=== PATIENT | female | born 1980 | race Caucasian/White ===

== ENCOUNTER 2016-08-04 11:21 | Emergency (ER) | payer OTHER ==
[~2016-08-04] VITALS: Ht 162.6 cm; Wt 54.3 kg
[~2016-08-04 11:21] MED LIST: PRENTAB26 PO
[2016-08-04 11:27] VITALS: TEMP 36.7; Ht 162.6 cm; Wt 54.3 kg
[2016-08-04 11:34] VITALS: O2SAT 100
[2016-08-04] MEDS ORDERED: SODIUM CHLORIDE 0.9% 1000ML 1,000 ML IV ONE (11:45)
[2016-08-04 12:00] LABS: BASO % 0.9 %; BASO ABS # 0.08 K/uL (0-0.2); COMPLETE YES; EOS % 5.9 %; HEMATOCRIT 42.2 % (37-47); IG% 0.2 %; LYMPH % 32.5 %; LYMPH ABS # 3.03 K/uL (1.2-3.4); MEAN CELL VOLUME 91.9 fL (80-100); MEAN CORPUSCULAR HEMOGLOBIN 31.2 pg (25-34); MEAN CORPUSCULAR HGB CONC 33.9 g/dl (32-36); MEAN PLATELET VOLUME 9.7 fL (7.4-10.4); MONO % 8.6 %; NEUT % 51.9 %; PLATELET COUNT 322 K/uL (130-400); RED BLOOD COUNT 4.59 M/uL (4.2-5.4); WHITE BLOOD COUNT 9.31 K/uL (4.8-10.8)
[2016-08-04 12:08] LABS: PARTIAL THROMBOPLASTIN RATIO 1.4; PROTHROMBIN TIME (PATIENT) 10.7 SECONDS (9.0-12.0)
[2016-08-04 12:17] LABS: URINE APPEARANCE CLEAR (CLEAR); URINE BILIRUBIN NEG (NEG); URINE COLOR YELLOW; URINE NITRITE NEG (NEG); URINE SPECIFIC GRAVITY 1.009 (1.000-1.030); UROBILINOGEN NEG (NEG); ZZUR CULT IF INDIC CLEAN CATCH NO
[2016-08-04 12:22] LABS: BUN/CREATININE RATIO 12.6 (10-20); CREATININE 0.85 mg/dl (0.60-1.20); POTASSIUM 3.6 mmol/L (3.5-5.1)
[2016-08-04 12:26] LABS: MANUAL MICROSCOPIC REQUIRED? NO; REVIEW REQ? NO
[2016-08-04 12:35] LABS: ALB/GLOB RATIO 1.2 (0.9-2); THYROID STIMULATING HORMONE 2.26 uIu/ml (0.300-4.500)
--- NOTE | 2016-08-04 12:36 | DIAGNOSTIC IMAGING REPORT ---
CHEST 2 VIEWS ROUTINE CLINICAL HISTORY: Left side CP pain COMPARISON STUDY: No previous studies for comparison. FINDINGS: The bones soft tissues and hemidiaphragms are normal. The cardiomediastinal silhouette is normal. The lungs are clear. The pulmonary vasculature is normal. IMPRESSION: Negative chest. Note is made of a thoracic scoliosis Electronically signed by: Claudio Gonzalez M.D. 08/04/2016 12:35 PM Dictated Date/Time: 08/04/2016 12:34 PM
[2016-08-04 12:41] LABS: CALCIUM 9.2 mg/dl (8.5-10.1)
[2016-08-04 13:30] VITALS: BP 107/60; PULSE 88; O2SAT 100
--- NOTE | 2016-08-04 14:54 | EMERGENCY ROOM VISIT NOTE ---
History First contact with patient: 11:29 Chief Complaint: CHEST PAIN Stated Complaint: CHEST PAIN Nursing Triage Summary: chest pain while driving to work today. pain went into neck and back. denies any sob. denies cardiac history History of Present Illness The patient is a 35 year old female who presents to the Emergency Room with complaints of left-sided chest pain radiating into her left side neck that began while driving to work this morning. The patient does not have shortness of breath or dyspnea on exertion. She does not report recent illness such as URI, cough, or fever. No recent travel history. She does not take control and reports a history of von Willebrand. The patient does not have a cardiac history and has not taken anything [id number] for her symptoms. Her discomfort does worsen with some range of motion and movement of her neck. She states the pain is dull and intermittent, currently rated a 4/10. She does not have complaints of extremity pain or numbness, no abdominal or pelvic discomfort. She has not had similar symptoms in the past. Review of Systems More than 10 systems were reviewed and otherwise negative with the exception of history of present illness. Past Medical/Surgical History Von Willebrand disease Family History No pertinent family history Social History Smoking Status: Never Smoker Housing Status: lives with family Occupation Status: employed Current/Historical Medications Scheduled Multivit/Min/Iron/Fol Ac/Pren ( Vitamin), 1 TAB PO DAILY Allergies Coded Allergies: Penicillins (Unverified Allergy, Unknown, Urticaria, 08/04/16) Physical Exam Vital Signs Date Time Temp Pulse Resp B/P Pulse Ox O2 Delivery O2 Flow Rate FiO2 08/04/16 13:30 88 18 107/60 100 08/04/16 12:27 82 08/04/16 11:34 100 Room Air 08/04/16 11:27 36.7 82 16 115/74 100 Physical Exam VITALS: Vitals are noted on the nurse's note and reviewed by myself. Vital signs stable. GENERAL: Well-developed, well-nourished, white female, who is in no acute distress and resting comfortably. Patient is cooperative with the examination. HEAD: Normocephalic atraumatic. NECK: Supple without nuchal rigidity. No lymphadenopathy. No thyromegaly. Cervical spine is nontender. Axial rotation to the right does exacerbate patient tenderness to the left paracervical musculature HEART: Regular rate and rhythm without murmurs gallops or rubs. LUNGS: Clear to auscultation bilaterally without wheezes, rales or rhonchi. No retractions or accessory muscle use. ABDOMEN: Positive normal bowel sounds x 4. Soft, nontender, without masses or organomegaly. No guarding or rebound tenderness. MUSCULOSKELETAL: No muscle atrophy, erythema, or edema noted. Full range of motion without joint tenderness in all extremities. No tenderness to palpation. Normal gait. Strength 5/5 throughout. NEURO: Patient was alert and oriented to person place and time. CN II through XII grossly intact. Medical Decision & Procedures ER Provider Diagnostic Interpretation: CHEST 2 VIEWS ROUTINE CLINICAL HISTORY: Left side CP pain COMPARISON STUDY: No previous studies for comparison. FINDINGS: The bones soft tissues and hemidiaphragms are normal. The cardiomediastinal silhouette is normal. The lungs are clear. The pulmonary vasculature is normal. IMPRESSION: Negative chest. Note is made of a thoracic scoliosis Laboratory Results 08/04/16 11:35 Red Blood Count 4.59, Mean Corpuscular Volume 91.9, Mean Corpuscular Hemoglobin 31.2, Mean Corpuscular Hemoglobin Concent 33.9, Mean Platelet Volume 9.7, Neutrophils (%) (Auto) 51.9, Lymphocytes (%) (Auto) 32.5, Monocytes (%) (Auto) 8.6, Eosinophils (%) (Auto) 5.9, Basophils (%) (Auto) 0.9, Neutrophils # (Auto) 4.83, Lymphocytes # (Auto) 3.03, Monocytes # (Auto) 0.80, Eosinophils # (Auto) 0.55, Basophils # (Auto) 0.08 08/04/16 11:35 Test 08/04/16 11:35 08/04/16 11:55 08/04/16 12:00 White Blood Count 9.31 K/uL (4.8-10.8) Red Blood Count 4.59 M/uL (4.2-5.4) Hemoglobin 14.3 g/dL (12.0-16.0) Hematocrit 42.2 % (37-47) Mean Corpuscular Volume 91.9 fL (80-100) Mean Corpuscular Hemoglobin 31.2 pg (25-34) Mean Corpuscular Hemoglobin Concent 33.9 g/dl (32-36) Platelet Count 322 K/uL (130-400) Mean Platelet Volume 9.7 fL (7.4-10.4) Neutrophils (%) (Auto) 51.9 % Lymphocytes (%) (Auto) 32.5 % Monocytes (%) (Auto) 8.6 % Eosinophils (%) (Auto) 5.9 % Basophils (%) (Auto) 0.9 % Neutrophils # (Auto) 4.83 K/uL (1.4-6.5) Lymphocytes # (Auto) 3.03 K/uL (1.2-3.4) Monocytes # (Auto) 0.80 K/uL (0.11-0.59) Eosinophils # (Auto) 0.55 K/uL (0-0.5) Basophils # (Auto) 0.08 K/uL (0-0.2) RDW Standard Deviation 45.1 fL (36.4-46.3) RDW Coefficient of Variation 13.5 % (11.5-14.5) Immature Granulocyte % (Auto) 0.2 % Immature Granulocyte # (Auto) 0.02 K/uL (0.00-0.02) Prothrombin Time 10.7 SECONDS (9.0-12.0) Prothromb Time International Ratio 1.0 (0.9-1.1) Activated Partial Thromboplast Time 36.9 SECONDS (21.0-31.0) Partial Thromboplastin Ratio 1.4 Anion Gap 10.0 mmol/L (3-11) Est Creatinine Clear Calc Drug Dose 79.9 ml/min Estimated GFR () 103.6 Estimated GFR (Non- 89.4 BUN/Creatinine Ratio 12.6 (10-20) Calcium Level 9.2 mg/dl (8.5-10.1) Total Bilirubin 1.0 mg/dl (0.2-1) Aspartate Amino Transf (AST/SGOT) 15 U/L (15-37) Alanine Aminotransferase (ALT/SGPT) 15 U/L (12-78) Alkaline Phosphatase 42 U/L (45-117) Total Protein 7.3 gm/dl (6.4-8.2) Albumin 4.0 gm/dl (3.4-5.0) Globulin 3.3 gm/dl (2.5-4.0) Albumin/Globulin Ratio 1.2 (0.9-2) Lipase 162 U/L (73-393) Thyroid Stimulating Hormone (TSH) 2.260 uIu/ml (0.300-4.500) Bedside D-Dimer 134 ng/mlFEU (0-450) Bedside Troponin I 0.000 ng/ml (0-0.045) Urine Color YELLOW Urine Appearance CLEAR (CLEAR) Urine pH 7.0 (4.5-7.5) Urine Specific [place] 1.009 (1.000-1.030) Urine Protein NEG (NEG) Urine Glucose (UA) NEG (NEG) Urine Ketones NEG (NEG) Urine Occult Blood NEG (NEG) Urine Nitrite NEG (NEG) Urine Bilirubin NEG (NEG) Urine Urobilinogen NEG (NEG) Urine Leukocyte Esterase TRACE (NEG) Urine WBC (Auto) 1-5 /hpf (0-5) Urine RBC (Auto) 0-4 /hpf (0-4) Urine Hyaline Casts (Auto) 0 /lpf (0-5) Urine Epithelial Cells (Auto) 10-20 /lpf (0-5) Urine Bacteria (Auto) NEG (NEG) Urine Test NEG (NEG) Medications Administered Medications (Trade) Dose Ordered Sig/Marcus Route Start Time Stop Time Status Last Admin Dose Admin Sodium Chloride (Nss 1000ml) 1,000 ml @ 999 mls/hr Q1H1M ONCE IV 08/04/16 11:45 08/04/16 12:45 DC 08/04/16 12:11 999 MLS/HR ED Course Physical exam and history were performed. Nursing notes and EMR were reviewed. Patient appears to have left-sided chest pain symptoms that began while driving to work. On examination the patient does not appear toxic. EKG was performed and was normal sinus rhythm without acute ST elevation. The patient was placed on the monitor. IV access was established and labs were obtained. Chest x-ray was performed. The patient was reevaluated multiple times throughout the course of her stay. Her blood work is as above and was reviewed. She does not have a significantly elevated white blood cell count or gross anemia, bandemia, or significant electrolyte imbalance. Lipase and transaminases are nondiagnostic. Chest x- ray is without acute findings. 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 Troponin and d-dimer 1 are both negative. I discussed the case with my attending physician, Dr. Mcpherson, and we feel the patient is stable for discharge home. The patient does not appear to have an acute cardiopulmonary process, and has been stable throughout her ER stay. There does appear to be some range of motion exacerbates her symptoms, and I do suspect a muscle spasm or strain causing much of her discomfort. I do recommend the patient follow with her PCP in the next few days for recheck. She was otherwise invited back to the ER with any new, worsening, or concerning symptoms. She voiced understanding and rated her discomfort a 0/10 at the time of her departure. The chart was completed utilizing [employer] (formerly [employer]) Speech Voice Recognition Software. Grammatical errors, random word insertions, pronoun errors, and incomplete sentences are an occasional consequence of this system due to software limitations, ambient noise, and hardware issues. Any formal questions or concerns about the content, text, or information contained within the body of this dictation should be directly addressed to the provider for clarification. . Medical Decision Differential diagnosis includes, but is not limited to: Myocardial infarction, dysrhythmia, pericarditis, pneumothorax, aortic aneurysm/dissection, DVT/PE, anxiety, GERD, PUD, electrolyte imbalance, thyroid disorder, pneumonia, bronchitis, pancreatitis, and others Impression Primary Impression: Non-cardiac chest pain Departure Information Referrals Kori Mckenna DO (PCP) Patient Instructions [facility]
== END 2016-08-04 13:32 | disposition home or self-care (01) ==
LOC: C.EDB 11:23
DX: R07.89 Other chest pain (principal); M54.2 Cervicalgia; D68.0 Von Willebrand disease

== ENCOUNTER → 2016-08-07 | Outpatient (CLI) | payer OTHER ==
[~2016-08-07] MED LIST changes: +IBUP-103 PO; +NAPR-1169 PO; +OPTIRAY 320 IV PRN
--- NOTE | 2016-08-07 15:52 | DIAGNOSTIC IMAGING REPORT ---
CHEST CTA for PULMONARY ARTERIES CT DOSE: 214.32 mGycm HISTORY: Chest pain. Dyspnea. CHEST PAIN , SOB EVAL FOR PE TECHNIQUE: Multiaxial CT images of the chest were performed following the intravenous administration of contrast to evaluate the pulmonary arteries. Maximal intensity projection images were also obtained. COMPARISON STUDY: None. FINDINGS: There is a normal caliber thoracic aorta with no evidence for dissection. There is no evidence for pulmonary embolus. No pleural effusions. No pneumothorax. The liver and spleen are unremarkable. No mediastinal or hilar lymphadenopathy. The central airways are patent. The lungs are clear. Slight peribronchial thickening throughout. IMPRESSION: No evidence for pulmonary embolus. Lungs are clear. Slight peribronchial thickening. Electronically signed by: Claudio Gonzalez M.D. 08/07/2016 3:51 PM Dictated Date/Time: 08/07/2016 3:48 PM
[2016-08-07 16:42] LABS: BASO % 0.5 %; BASO ABS # 0.04 K/uL (0-0.2); COMPLETE YES; HEMATOCRIT 40.2 % (37-47); IG% 0.1 %; LYMPH % 31.2 %; LYMPH ABS # 2.55 K/uL (1.2-3.4); MEAN CELL VOLUME 92.4 fL (80-100); MEAN CORPUSCULAR HEMOGLOBIN 30.8 pg (25-34); MEAN CORPUSCULAR HGB CONC 33.3 g/dl (32-36); MONO % 7.6 %; NEUT % 55.6 %; PLATELET COUNT 327 K/uL (130-400); RED BLOOD COUNT 4.35 M/uL (4.2-5.4); WHITE BLOOD COUNT 8.18 K/uL (4.8-10.8)
[2016-08-07 17:24] LABS: ALT/SGPT 12 U/L (12-78); AST/SGOT 10 U/L (15-37); BLOOD UREA NITROGEN 13 mg/dl (7-18); BUN/CREATININE RATIO 14.4 (10-20); CALCIUM 8.3 mg/dl (8.5-10.1); CARBON DIOXIDE 27 mmol/L (21-32); CHLORIDE 107 mmol/L (98-107); CREATININE 0.89 mg/dl (0.60-1.20); GLUCOSE 96 mg/dl (70-99); POTASSIUM 3.7 mmol/L (3.5-5.1); SODIUM 142 mmol/L (136-145)
[2016-08-07 17:26] LABS: ALB/GLOB RATIO 1.1 (0.9-2); ALKALINE PHOSPHATASE 41 U/L (45-117)
[2016-08-07 18:38] LABS: LYME DISEASE AB IGG NEG (NEG); LYME DISEASE AB IGM NEG (NEG)
== END | disposition home or self-care (01) ==
LOC: C.CTS 15:22
PROVIDERS: ATTEND Family Medicine
DX: R07.9 Chest pain, unspecified (principal); R06.02 Shortness of breath

== ENCOUNTER 2016-11-17 19:10 | Emergency (ER) | payer OTHER ==
[~2016-11-17] VITALS: Ht 160 cm; Wt 58.5 kg
[~2016-11-17 19:10] MED LIST changes: -IBUP-103 PO; -NAPR-1169 PO; -OPTIRAY 320 IV PRN
[2016-11-17 19:13] VITALS: TEMP 36.7; Ht 160 cm; Wt 58.5 kg
--- NOTE | 2016-11-17 19:52 | DIAGNOSTIC IMAGING REPORT ---
RIGHT SHOULDER MIN 2 VIEWS ROUTINE CLINICAL HISTORY: Right shoulder pain. COMPARISON: None FINDINGS: Alignment of the right shoulder is anatomic. There is no fracture or suspicious lesion. Joint spaces are preserved. There may be minimal osteoarthritis of the right acromioclavicular joint. IMPRESSION: 1. No acute fracture. 2. Suspected minimal osteoarthritis of the right acromioclavicular joint. Electronically signed by: Connor Ball M.D. 11/17/2016 7:51 PM Dictated Date/Time: 11/17/2016 7:50 PM
[2016-11-17] MEDS ORDERED: KETOROLAC TROMETHAMINE 60 MG/2 ML VIAL IM STA (19:54)
--- NOTE | 2016-11-17 20:02 | EMERGENCY ROOM VISIT NOTE ---
ED Visit Note First contact with patient: 19:19 CHIEF COMPLAINT: Right shoulder pain HISTORY OF PRESENT ILLNESS: This 35-year-old female patient presents to the emergency department, ambulatory, complaining of pain in the right shoulder for years, worse over the past 2 days. The patient states she played softball growing up, and has a history of right shoulder soreness and pain. The patient has never had any official injury to the arm, however she has frequently had pain flareup. She states over the past 2 days, she is having worsening pain right in the shoulder joint, which is radiating down towards the elbow and causing some weakness in her right hand. The patient has been taking 400 mg Advil every 4 hours, and states it does not make much difference. The patient states the pain has been worsening over the past 2 days. She describes an achy pain, which shoots towards the elbow, and throbbing pain in the hand. The patient states she is able to move the shoulder, however movement of the shoulder worsens the discomfort. The patient is most comfortable with the arm in a flexed position. There is very mild limitation of motion of the arm because of the pain. The pain is moderate, constant and increases with motion of the hand and arm. The patient rates the pain 8/10. No numbness or tingling. No neck or back pain. No chest pain or shortness of breath. No abdominal pain or nausea/vomiting. No cough. REVIEW OF SYSTEMS: A 6 system review of systems was performed with positives and pertinent negatives in the HPI. ALLERGIES: Penicillins MEDICATIONS: None PMH: None SOCIAL HISTORY:The patient lives locally with family. She denies drug, tobacco use. The patient admits to occasional alcohol use approximally once weekly. PHYSICAL EXAM: Vital Signs: Reviewed nurse's notes, vital signs stable. GENERAL : This is a 35-year-old, otherwise healthy white female, in no acute distress, but appears to be in pain, well-developed, well-nourished. MUSCULOSKELETAL: There is no deformity in the contour of the right shoulder and there are no lety deformities noted. There is no sulcus sign. There is tenderness over the shoulder joint, worse on the anterior aspect. The patient's range of motion is full. Supraspinatus strength 5/5. There is no clavicle tenderness. No tenderness of the humerus, elbow, wrist, or hand. 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 Radial pulse 2+. NECK: No tenderness to palpation over the cervical spine. HEART: Regular rate and rhythm without murmurs gallops or rubs. LUNGS: Clear to auscultation bilaterally without wheezes, rales or rhonchi. No accessory muscle use. No retractions. NEURO: The patient is alert and oriented to person, place, and time. Normal sensation to light and sharp touch. Capillary refill less than 2 seconds. RADIOLOGY: X-Ray Right Shoulder: FINDINGS: Alignment of the right shoulder is anatomic. There is no fracture or suspicious lesion. Joint spaces are preserved. There may be minimal osteoarthritis of the right acromioclavicular joint. IMPRESSION: 1. No acute fracture. 2. Suspected minimal osteoarthritis of the right acromioclavicular joint. EMERGENCY DEPARTMENT COURSE: I examined the patient. An X-ray of the right shoulder was reviewed by myself and radiologist and shows osteoarthritis, but no acute fracture or dislocation. The patient was given 60mg Toradol IM and did note slight improvement in her symptoms. The patient was given a shoulder sling for comfort. Discharge instructions reviewed at bedside and the patient was discharged home in good condition. DIFFERENTIAL DIAGNOSIS: Arthritis, rotator cuff tear, sprain, strain, contusion , malignancy, and others. DIAGNOSIS: Osteoarthritis of the right shoulder DISCHARGE INSTRUCTIONS & TREATMENT: Take Naproxen 500mg twice daily x2 weeks. Take with food. Avoid using more than 2400mg in a 24 hour period. Prolonged inappropriate use can lead to stomach upset or ulcers. (AND/OR) Acetaminophen(Tylenol) may be used for fever or pain. Use 1000mg every six hours as needed. Avoid using more than 3000mg in a 24 hour period. Ice compresses for 20 minutes at a time four times daily for 2-3 days. Use the sling as instructed for comfort. Remove your arm from the sling 4-6 times a day and move all the joints around to keep them loose. Rest and elevate your injury. Return to the ER immediately for any numbness, tingling, severe pain, extreme swelling in the extremity or as needed. Follow-up with [facility] already scheduled appointment. Follow-up with your primary care physician in 2 to 3 days for a recheck of your current condition. Current/Historical Medications Scheduled Naproxen (Naprosyn), 500 MG PO BID Scheduled PRN Ibuprofen Tab (Advil), 400 MG PO Q4 PRN for Pain Allergies Coded Allergies: Penicillins (Unverified Allergy, Unknown, Urticaria, 08/04/16) Vital Signs Date Time Temp Pulse Resp B/P (MAP) Pulse Ox O2 Delivery O2 Flow Rate FiO2 11/17/16 20:27 77 18 115/75 98 Room Air 11/17/16 19:13 36.7 85 16 112/70 99 Room Air Medications Administered Medications (Trade) Dose Ordered Sig/Marcus Route Start Time Stop Time Status Last Admin Dose Admin Ketorolac Tromethamine (Toradol Inj) 60 mg NOW STAT IM 11/17/16 19:54 11/17/16 19:55 DC 11/17/16 20:17 60 MG Departure Information Impression Primary Impression: Osteoarthritis of right shoulder Dispostion Home / Self-Care Condition GOOD Prescriptions Naproxen (Naprosyn) 500 Mg Tab 500 MG PO BID, #60 TAB Prov: Kerline Baugh, YESENIA 11/17/16 Referrals Kori Mckenna DO (PCP) Claudio Lyman M.D. Patient Instructions Arthritis, [facility] Additional Instructions ORTHOPEDIC INSTRUCTIONS: Take Naproxen 500mg twice daily x2 weeks. Take with food. Avoid using more than 2400mg in a 24 hour period. Prolonged inappropriate use can lead to stomach upset or ulcers. (AND/OR) Acetaminophen(Tylenol) may be used for fever or pain. Use 1000mg every six hours as needed. Avoid using more than 3000mg in a 24 hour period. Ice compresses for 20 minutes at a time four times daily for 2-3 days. Use the sling as instructed for comfort. Remove your arm from the sling 4-6 times a day and move all the joints around to keep them loose. Rest and elevate your injury. Return to the ER immediately for any numbness, tingling, severe pain, extreme swelling in the extremity or as needed. Follow-up with [facility] already scheduled appointment. Follow-up with your primary care physician in 2 to 3 days for a recheck of your current condition. Problem Qualifiers Primary Impression: Osteoarthritis of right shoulder Osteoarthritis type: unspecified Qualified Codes: M19.011 - Primary osteoarthritis, right shoulder
[2016-11-17] MEDS ORDERED: IBUP-103 PO (20:07)
[2016-11-17] MEDS ORDERED: NAPR-1169 PO (20:15)
[2016-11-17 20:27] VITALS: BP 115/75; PULSE 77; O2SAT 98
== END 2016-11-17 20:29 | disposition home or self-care (01) ==
LOC: C.EDB 19:11 → C.EDD 20:29
DX: M19.011 Primary osteoarthritis, right shoulder (principal)

== ENCOUNTER 2024-02-11 17:31 | Observation (INO) ==
[2024-02-11 18:05] LABS: iSTAT Creatinine 0.9 mg/dl (0.6-1.3); iSTAT Hemoglobin 6.1 g/dl (12.0-16.0); iSTAT Ionized Calcium 1.15 mmol/l (1.12-1.32); iSTAT Potassium 3.7 mmol/L (3.3-5.0)
[2024-02-11 18:18] LABS: Hematocrit (blood only) 17.4 % (37.0-47.0); Hemoglobin 4.7 g/dl (12.0-16.0); Mean Corpuscular Volume 70.2 fL (80.0-100.0); Mean Platelet Volume 9.2 fL (9.4-12.4); Platelet Count 518 K/uL (130-400); RDW Standard Deviation 50.2 fL (36.4-46.3); Red Blood Count 2.48 M/uL (4.20-5.40); White Blood Count 10.08 K/ul (4.8-10.8)
[2024-02-11] MEDS ORDERED: SODIUM CHLORIDE 0.9% 100 ML IV PRN (18:21)
[2024-02-11] MEDS ORDERED: SODIUM CHLORIDE 0.9% 50 ML IV PRN (18:21)
[2024-02-11 18:30] LABS: BUN Creatinine Ratio 16.5 (10-20); Calcium 8.5 mg/dl (8.6-10.3); Creatinine Clr Calc Pharmacy 80.6 ml/min; Potassium 3.7 mmol/L (3.5-5.1)
[2024-02-11 18:42] LABS: Partial Thromboplastin Ratio 1.2; Partial Thromboplastin Time 32 Seconds (21-31); Prothrombin Time 10.5 Seconds (9.0-12.0)
[2024-02-11 18:48] LABS: Basophils # (auto) 0.05 K/uL (0.00-0.20); Basophils % (auto) 0.5 %; Eosinophils # (auto) 0.42 K/uL (0.00-0.50); Eosinophils % (auto) 4.2 %; Immature Granulocytes # (auto) 0.06 K/uL (0.01-0.20); Immature Granulocytes % (auto) 0.6 %; Lymphocytes # (auto) 2.35 K/uL (1.20-3.40); Lymphocytes % (auto) 23.3 %; Monocytes # (auto) 0.72 K/uL (0.11-0.59); Monocytes % (auto) 7.1 %; Neutrophils # (auto) 6.48 K/uL (1.40-6.50); Neutrophils % (auto) 64.3 %; Polychromasia 1+
[2024-02-11] MEDS: DESMOPRESSIN ACETATE 20 MCG in SODIUM CHLORIDE 0.9% 50 ML IV ONE (19:08)
[2024-02-11] MEDS ORDERED: ONDANSETRON INJ 2 MG/ML 2 ML VIAL IV PRN (19:11)
[2024-02-11] MEDS ORDERED: ACETAMINOPHEN 325 MG TAB PO PRN (19:11)
[2024-02-11] MEDS ORDERED: LORazepam 0.5 MG TAB PO PRN (19:11)
[2024-02-11] MEDS ORDERED: ALUMINUM/MAGNESIUM/SIMETH (MAALOX MAX) 30 ML UDC PO PRN (19:11)
[2024-02-11] MEDS ORDERED: MAGNESIUM HYDROXIDE SUSP 30 ML UDC PO PRN (19:11)
--- NOTE | 2024-02-11 19:21 | OB/GYN Consultation ---
Date of Consultation February 11, 2024 Assessment & Plan (1) Deficiency of von Willebrand factor: (2) Abnormal uterine bleeding (AUB): 43 yo female with AUB since 10/2023, not responded to progestin therapy, was planning to get hysterectomy with Dr Erwin, found to have anemia with Hb of 4.7, ( was 7 in 03/2023), chronc anemia, h/o VWD VSS Afebrile, tachycardic No active VB Plan to admit, monitor, PRBCC transfusion, DDAVP per hematology Estrogen therapy for thinned endometrium followed by Progestin after 12 days, All questions were answred. (3) Fibroid, uterine: (4) Anemia: History of Present Illness History of Present Illness Patient is a 43 yo female who has h/o VWD and chronic anemia. She had Heavy period on October when her PCP placed her on Aygestin which sopped her bleeding for few days and then it got worse. She used it for about a month and then stopped due to ongoing VB Her bleeding stopped for a while and started again about 5 weeks ago. It has been heavy and light off and on. It was heavier this week but has been light for the last 2 days. She went to hematology office for IV iron infusion ad her Hb was 4.7 and recommended to come to ER for blood transfusion. She feels tired but not dizzy or light headed. 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 She denies h/o STD's, has been with her only She had 2 babies, had hemorrhage after 1st one and then diagnosed with VWD, was given DDAVP during her last baby 9 years ago. She has not seen Huc since then. She saw Dr Erwin 2 weeks ago and planned to have hysterectomy. She was going to see her basic sciences professor to arrange DDAVP before surgery. Dr Holley here in ER talked her basic sciences professor now and orderd her IV Desmopressin. Last US was on 12/2023: FINDINGS: Uterus: The retroverted uterus is normal in size and heterogeneous and echotexture, measuring 9.8 x 5.6 x 6.4 cm. A heterogeneous mass lesion in the anterior fundal region measures up to 4. Centimeters and likely represents a fibroid. This closely approximates/distorts the fundal endometrium. Endometrium: The endometrium is distorted and difficult to measure Ovaries: The ovaries are normal in size and morphology. The right ovary measures 2.7 x 1.9 x 1.4 cm and the left ovary measures 4.8 x 3.9 x 4.4 cm. A 4.4 cm septated cyst is seen on the left. Additional follicles are noted on the right. Normal Doppler waveforms are shown within both ovaries. Pelvis: There is trace free fluid in the cul-de-sac in the left adnexa. No concerning adnexal lesion is seen. IMPRESSION: 1. Heterogeneous retroverted uterus. 2. An intramural mass in the anterior fundal region is pathologically indeterminant, but typical for a fibroid. This closely approximates and distorts the endometrium at this level. 3. There is a 4.4 cm septated left ovarian cyst. No sonographic evidence of ovarian torsion is seen in the time examination. 4. Trace free fluid is noted in the left adnexa. Allergies Allergy/AdvReac Type Severity Reaction Status Date / Time Penicillins Allergy Unknown Urticaria Unverified 08/04/16 12:17 Home Medications Medication Instructions Recorded Confirmed Type Ibuprofen Tab (ADVIL) 400 mg PO Q4 PRN Pain #0 tabs 11/17/16 History ondansetron 4 mg disintegrating 4 mg PO Q8H PRN nausea and 04/19/23 Rx tablet vomiting #10 tabs oxycodone 5 mg tablet 5 mg PO Q6H PRN pain, severe #12 04/19/23 Rx tabs Patient History Social History Smoking Status: Never smoker Preferred Language: Mongolian Feels Safe at Home: Yes Physical Exam Constitutional: WD/WN, vitals as above well developed, well nourished and comfortable Gastrointestinal (Abdomen): normal bowel sounds, soft, nontender, no hepatosplenomegaly Genitourinary: deferred already done by ER Dr and was ligt bleeding. Results & Data Vital Signs (Past 12 Hours) Vital Signs Temp Pulse Pulse Resp BP BP Pulse Ox 02/11/24 19:06 129 H 18 124/74 100 02/11/24 17:35 37.3 C 108 H 20 132/70 92 O2 Del Method 02/11/24 19:06 Room Air 02/11/24 17:35 Room Air Laboratory Results 02/11/24 02/11/24 02/11/24 Range/Units 18:35 18:19 17:52 WBC (4.8-10.8) K/ul RBC (4.20-5.40) M/uL Hgb (12.0-16.0) g/dl POC Hgb 6.1 L* (12.0-16.0) g/dl Hct (37.0-47.0) % POC Hct 18 L* (37-47) % MCV (80.0-100.0) fL MCH (25.0-34.0) pg MCHC (32.0-36.0) g/dL RDW Std Deviation (36.4-46.3) fL RDW Coeff of Claudia (11.5-14.5) % Plt Count (130-400) K/uL MPV (9.4-12.4) fL Immature Gran % (Auto) % Neut % (Auto) % Lymph % (Auto) % [place] % (Auto) % Eos % (Auto) % Baso % (Auto) % Neut # (Auto) (1.40-6.50) K/uL Lymph # (Auto) (1.20-3.40) K/uL [place] # (Auto) (0.11-0.59) K/uL Eos # (Auto) (0.00-0.50) K/uL Baso # (Auto) (0.00-0.20) K/uL Immature Gran # (Auto) (0.01-0.20) K/uL Polychromasia PT (9.0-12.0) Seconds INR (0.9-1.1) APTT (21-31) Seconds PTT Ratio POC Sodium 136 (135-144) mmol/L Sodium (136-145) mmol/L POC Potassium 3.7 (3.3-5.0) mmol/L Potassium (3.5-5.1) mmol/L POC Chloride 101 (101-112) mmol/L Chloride (98-107) mmol/L Carbon Dioxide (21-32) mmol/L POC Total CO2 22 L (24-31) mmol/L Anion Gap (3-11) POC Anion Gap 18.0 (16-25) mmol/L POC BUN 13 (7-18) mg/dl BUN (6-23) mg/dl Creatinine (0.6-1.2) mg/dl POC Creatinine 0.9 (0.6-1.3) mg/dl Est Cr Clr Drug Dosing ml/min eGFR BUN/Creatinine Ratio (10-20) Glucose (70-99(Fasting)) mg/dl POC Glucose (other) 133 H (70-99) mg/dl Calcium (8.6-10.3) mg/dl POC Ioniz Calcium Bonnie 1.15 (1.12-1.32) mmol/l Blood Type O Positive Blood Type Recheck O Positive Antibody Screen NEGATIVE Crossmatch See Detail 02/11/24 Range/Units 17:50 WBC 10.08 (4.8-10.8) K/ul RBC 2.48 L (4.20-5.40) M/uL Hgb 4.7 L* (12.0-16.0) g/dl POC Hgb (12.0-16.0) g/dl Hct 17.4 L* (37.0-47.0) % POC Hct (37-47) % MCV 70.2 L (80.0-100.0) fL MCH 19.0 L (25.0-34.0) pg MCHC 27.0 L (32.0-36.0) g/dL RDW Std Deviation 50.2 H (36.4-46.3) fL RDW Coeff of Claudia 20.0 H (11.5-14.5) % Plt Count 518 H (130-400) K/uL MPV 9.2 L (9.4-12.4) fL Immature Gran % (Auto) 0.6 % Neut % (Auto) 64.3 % Lymph % (Auto) 23.3 % [place]eves % (Auto) 7.1 % Eos % (Auto) 4.2 % Baso % (Auto) 0.5 % Neut # (Auto) 6.48 (1.40-6.50) K/uL Lymph # (Auto) 2.35 (1.20-3.40) K/uL [place]eves # (Auto) 0.72 H (0.11-0.59) K/uL Eos # (Auto) 0.42 (0.00-0.50) K/uL Baso # (Auto) 0.05 (0.00-0.20) K/uL Immature Gran # (Auto) 0.06 (0.01-0.20) K/uL Polychromasia 1+ PT 10.5 (9.0-12.0) Seconds INR 1.0 (0.9-1.1) APTT 32 H (21-31) Seconds PTT Ratio 1.2 POC Sodium (135-144) mmol/L Sodium 135 L (136-145) mmol/L POC Potassium (3.3-5.0) mmol/L Potassium 3.7 (3.5-5.1) mmol/L POC Chloride (101-112) mmol/L Chloride 104 (98-107) mmol/L Carbon Dioxide 23 (21-32) mmol/L POC Total CO2 (24-31) mmol/L Anion Gap 8 (3-11) POC Anion Gap (16-25) mmol/L POC BUN (7-18) mg/dl BUN 14 (6-23) mg/dl Creatinine 0.85 (0.6-1.2) mg/dl POC Creatinine (0.6-1.3) mg/dl Est Cr Clr Drug Dosing 80.6 ml/min eGFR 87.67 BUN/Creatinine Ratio 16.5 (10-20) Glucose 134 H (70-99(Fasting)) mg/dl POC Glucose (other) (70-99) mg/dl Calcium 8.5 L (8.6-10.3) mg/dl POC Ioniz Calcium Bonnie (1.12-1.32) mmol/l Blood Type Blood Type Recheck Antibody Screen Crossmatch (3) Fibroid, uterine Uterine leiomyoma location: intramural Qualified Code(s): D25.1 - Intramural leiomyoma of uterus (4) Anemia Anemia type: iron deficiency Iron deficiency anemia type: chronic blood loss Qualified Code(s): D50.0 - Iron deficiency anemia secondary to blood loss (chronic)
--- NOTE | 2024-02-11 19:45 | Emergency Department Note ---
History of Present Illness General Chief complaint: Referred by Doctor Stated complaint: BLOOD TRANSFUSION Time Seen by Provider: 02/11/24 17:38 History of Present Illness Provider complaint: Low blood counts vaginal bleeding 43-year-old female presents emergency department for low blood counts and vaginal bleeding. Patient reports that she had outpatient blood work done today and showed her hemoglobin was low. Patient reports she has a history of von Willebrand disease and iron deficiency anemia. Patient states she is on iron infusions. Patient reports that she has been having increased vaginal bleeding for the last month. She states she has tried oral oral contraceptives to help her vaginal bleeding but that made her symptoms worse that she had more bleeding. Patient states she had an outpatient ultrasound done by Dr. Erwin which did show a fibroid and states that they are planning to hysterectomy on her. She does report some mild difficulty breathing with exertion. No chest pain. No melena or hematochezia. Home Medications Medication Instructions Recorded Confirmed Type Ibuprofen Tab (ADVIL) 400 mg PO Q4 PRN Pain #0 tabs 11/17/16 History ondansetron 4 mg disintegrating 4 mg PO Q8H PRN nausea and 04/19/23 Rx tablet vomiting #10 tabs oxycodone 5 mg tablet 5 mg PO Q6H PRN pain, severe #12 04/19/23 Rx tabs Allergies Allergy/AdvReac Type Severity Reaction Status Date / Time Penicillins Allergy Unknown Urticaria Unverified 08/04/16 12:17 Past Med/Surg History Problem List (Updated 02/11/24 @ 19:53 by Gonzales Holley MD) Von Willebrand's disease (Acute) Anemia (Acute) Vaginal bleeding (Acute) Flank pain Clotting disorder (Acute) Non-cardiac chest pain (Acute) Ruptured membranes, prolonged (Acute) Medical History No pertinent family history Anemia Fibroid, uterine Abnormal uterine bleeding (AUB) Deficiency of von Willebrand factor Surgical History No pertinent past surgical history Social History Smoking Status: Never smoker Preferred Language: Occitan Feels Safe at Home: Yes Physical Exam Vital Signs Vital Signs - 24 hr 02/11/24 17:35 02/11/24 18:23 02/11/24 19:06 Temperature 37.3 C Temperature Source Skin Pulse Rate 108 H 113 H Pulse Rate [Finger] 129 H Pulse Rhythm Pulse Rhythm [Finger] Regular Pulse Strength Pulse Strength [Finger] Normal Respiratory Rate 20 18 Respiratory Effort / Characteristics Non-Labored Spontaneous Non-Labored Spontaneous Respiratory Depth Normal Normal Respiratory Pattern Regular Blood Pressure 132/70 Blood Pressure [Right Arm] 124/74 Blood Pressure Mean 90 Blood Pressure Mean [Right Arm] 90 Blood Pressure Position [Right Arm] Lying Pulse Oximetry 92 100 Oxygen Delivery Method Room Air Room Air Sepsis Recent Fever Within 48 Hours No Sepsis New/Unexplained Change in Mental Status N/A Sepsis Action Taken by Nursing No Action Required 02/11/24 19:48 Temperature 36.9 C Temperature Source Oral Pulse Rate 115 H Pulse Rate [Finger] Pulse Rhythm Regular Pulse Rhythm [Finger] Pulse Strength Normal Pulse Strength [Finger] Respiratory Rate 18 Respiratory Effort / Characteristics Respiratory Depth Respiratory Pattern Blood Pressure 118/68 Blood Pressure [Right Arm] Blood Pressure Mean 84 Blood Pressure Mean [Right Arm] Blood Pressure Position [Right Arm] Pulse Oximetry 100 Oxygen Delivery Method Sepsis Recent Fever Within 48 Hours Sepsis New/Unexplained Change in Mental Status Sepsis Action Taken by Nursing Physical Exam GENERAL: She is oriented to person, place, and time. She appears well-developed and well-nourished. She does not appear distressed. HENT: Exam performed. -Head: Normocephalic and atraumatic. -Right Ear: External ear normal. No mastoid erythema -Left Ear: External ear normal. No mastoid erythema -Mouth/Throat: The oropharynx is clear and moist. No trismus in the jaw. No dental abscesses or uvula swelling. No oropharyngeal exudate or tonsillar abscesses. EYES: Conjunctivae and EOM are normal. Pupils are equal, round, and reactive to light. Right eye exhibits no discharge. Left eye exhibits no discharge. No scleral icterus. NECK: Normal range of motion. Neck supple. No JVD present. No rigidity. No tracheal deviation and normal range of motion present. CV: Tachycardic rate, regular rhythm, normal heart sounds and intact distal pulses. There is no peripheral edema. Palpable radial pulses bue. PULM/CHEST: Effort normal and breath sounds normal. No respiratory distress. No stridor. She has no wheezes. She has no rales. ABD: The abdomen is soft. There is no tenderness. There is no rebound, no guarding. : Mild vaginal bleeding in the vaginal vault. Cervical os is closed. No cervical motion tenderness or adnexal tenderness. MUSC/SKEL: Normal range of motion. There is no peripheral edema, tenderness or deformity. LYMPH: No cervical adenopathy. NEURO: She is alert and oriented to person, place, and time. She has normal strength. No cranial nerve deficit or sensory deficit. Coordination and gait normal. GCS eye subscore is 4. GCS verbal subscore is 5. GCS motor subscore is 6. Cerebellar tests wnl. SKIN: Skin is warm and dry. She is not diaphoretic. PSYCH: She has a normal mood and affect. Behavior is normal. Judgment and thought content normal. Course Course 1737: The patient was evaluated in room C2. A complete history and physical exam was performed Cardiac monitoring: An order was placed for continuous cardiac monitoring. The monitor shows a rate of 110 with sinus rhythm interpreted by me 1820: Vital signs stable. Hemoglobin 4.7. Will transfuse 2 units packed red blood cells. 1830: Spoke with Dr. Jean on-call COMMISSARY PRODUCTION SUPERVISOR for patient's COMMISSARY PRODUCTION SUPERVISOR Dr. Erwin who states he obtained pelvic ultrasound and she will plan on admitting the patient. 185: Spoke with Dr. Shen on-call for patient's wet process operator Dr. Catalan. We discussed if desmopressin would be appropriate for this patient. She went into their records and decided it would be. She recommends 0.3 mcg/kg over 30 minutes. 0: Dr. Jean down to evaluate the patient will meet the patient to her service. Administered Medications Discontinued Medications Desmopressin Acetate 20 mcg/ (Sodium Chloride) 55 mls @ 100 mls/hr IV ONCE ONE Stop: 02/11/24 19:18 Last Admin: 02/11/24 19:08 Dose: 100 mls/hr Documented By: BÁRBARA Critical Care Time Critical Care Time: Yes Total Critical Care Time: 52 I have personally spent greater than 52 minutes of critical care time in the direct management of this patient. This includes bedside care, interpretation of diagnostic studies, and testing, discussion with consultants, patient, and family members, and other required patient management activities. This 52 minutes is in excess of all separately billable procedures. Medical Decision Making Medical Records Attestation: I reviewed the patient's medical records. External medical records reviewed. Patient had a renal transvaginal ultrasound done in December 2023 which showed a fibroid. Laboratory Data Attestation: I reviewed the patient's lab results. 02/11/24 17:50 02/11/24 17:50 Lab Results 02/11/24 02/11/24 02/11/24 Range/Units 17:50 17:52 18:19 WBC 10.08 (4.8-10.8) K/ul RBC 2.48 L (4.20-5.40) M/uL Hgb 4.7 L* (12.0-16.0) g/dl POC Hgb 6.1 L* (12.0-16.0) g/dl Hct 17.4 L* (37.0-47.0) % POC Hct 18 L* (37-47) % MCV 70.2 L (80.0-100.0) fL MCH 19.0 L (25.0-34.0) pg MCHC 27.0 L (32.0-36.0) g/dL RDW Std Deviation 50.2 H (36.4-46.3) fL RDW Coeff of Claudia 20.0 H (11.5-14.5) % Plt Count 518 H (130-400) K/uL MPV 9.2 L (9.4-12.4) fL Immature Gran % (Auto) 0.6 % Neut % (Auto) 64.3 % Lymph % (Auto) 23.3 % [place] % (Auto) 7.1 % Eos % (Auto) 4.2 % Baso % (Auto) 0.5 % Neut # (Auto) 6.48 (1.40-6.50) K/uL Lymph # (Auto) 2.35 (1.20-3.40) K/uL [place] # (Auto) 0.72 H (0.11-0.59) K/uL Eos # (Auto) 0.42 (0.00-0.50) K/uL Baso # (Auto) 0.05 (0.00-0.20) K/uL Immature Gran # (Auto) 0.06 (0.01-0.20) K/uL Polychromasia 1+ PT 10.5 (9.0-12.0) Seconds INR 1.0 (0.9-1.1) APTT 32 H (21-31) Seconds PTT Ratio 1.2 POC Sodium 136 (135-144) mmol/L Sodium 135 L (136-145) mmol/L POC Potassium 3.7 (3.3-5.0) mmol/L Potassium 3.7 (3.5-5.1) mmol/L POC Chloride 101 (101-112) mmol/L Chloride 104 (98-107) mmol/L Carbon Dioxide 23 (21-32) mmol/L POC Total CO2 22 L (24-31) mmol/L Anion Gap 8 (3-11) POC Anion Gap 18.0 (16-25) mmol/L POC BUN 13 (7-18) mg/dl BUN 14 (6-23) mg/dl Creatinine 0.85 (0.6-1.2) mg/dl POC Creatinine 0.9 (0.6-1.3) mg/dl Est Cr Clr Drug Dosing 80.6 ml/min eGFR 87.67 BUN/Creatinine Ratio 16.5 (10-20) Glucose 134 H (70-99(Fasting)) mg/dl POC Glucose (other) 133 H (70-99) mg/dl Calcium 8.5 L (8.6-10.3) mg/dl POC Ioniz Calcium Bonnie 1.15 (1.12-1.32) mmol/l Blood Type O Positive Blood Type Recheck Antibody Screen NEGATIVE Crossmatch See Detail 02/11/24 Range/Units 18:35 WBC (4.8-10.8) K/ul RBC (4.20-5.40) M/uL Hgb (12.0-16.0) g/dl POC Hgb (12.0-16.0) g/dl Hct (37.0-47.0) % POC Hct (37-47) % MCV (80.0-100.0) fL MCH (25.0-34.0) pg MCHC (32.0-36.0) g/dL RDW Std Deviation (36.4-46.3) fL RDW Coeff of Claudia (11.5-14.5) % Plt Count (130-400) K/uL MPV (9.4-12.4) fL Immature Gran % (Auto) % Neut % (Auto) % Lymph % (Auto) % [place] % (Auto) % Eos % (Auto) % Baso % (Auto) % Neut # (Auto) (1.40-6.50) K/uL Lymph # (Auto) (1.20-3.40) K/uL [place] # (Auto) (0.11-0.59) K/uL Eos # (Auto) (0.00-0.50) K/uL Baso # (Auto) (0.00-0.20) K/uL Immature Gran # (Auto) (0.01-0.20) K/uL Polychromasia PT (9.0-12.0) Seconds INR (0.9-1.1) APTT (21-31) Seconds PTT Ratio POC Sodium (135-144) mmol/L Sodium (136-145) mmol/L POC Potassium (3.3-5.0) mmol/L Potassium (3.5-5.1) mmol/L POC Chloride (101-112) mmol/L Chloride (98-107) mmol/L Carbon Dioxide (21-32) mmol/L POC Total CO2 (24-31) mmol/L Anion Gap (3-11) POC Anion Gap (16-25) mmol/L POC BUN (7-18) mg/dl BUN (6-23) mg/dl Creatinine (0.6-1.2) mg/dl POC Creatinine (0.6-1.3) mg/dl Est Cr Clr Drug Dosing ml/min eGFR BUN/Creatinine Ratio (10-20) Glucose (70-99(Fasting)) mg/dl POC Glucose (other) (70-99) mg/dl Calcium (8.6-10.3) mg/dl POC Ioniz Calcium Bonnie (1.12-1.32) mmol/l Blood Type Blood Type Recheck O Positive Antibody Screen Crossmatch [facility] Narrative 1738: The patient was evaluated in room C2. A complete history and physical exam was performed Cardiac monitoring: An order was placed for continuous cardiac monitoring. The monitor shows a rate of 110 with sinus rhythm interpreted by me 1820: Vital signs stable. Hemoglobin 4.7. Will transfuse 2 units packed red blood cells. 1830: Spoke with Dr. Jean on-call COMMISSARY PRODUCTION SUPERVISOR for patient's COMMISSARY PRODUCTION SUPERVISOR Dr. Erwin who states he obtained pelvic ultrasound and she will plan on admitting the patient. 1854: Spoke with Dr. Shen on-call for patient's wet process operator Dr. Catalan. We discussed if desmopressin would be appropriate for this patient. She went into their records and decided it would be. She recommends 0.3 mcg/kg over 30 minutes. 1909: Dr. Ted oh to evaluate the patient will meet the patient to her service. Impression & Plan Vaginal bleeding, Anemia, Von Willebrand's disease Discharge Plan Visit Data Chief Complaint: Referred by Doctor Stated Complaint: BLOOD TRANSFUSION ED Provider: Gonzales Holley Discharge Problem: Vaginal bleeding, Anemia, Von Willebrand's disease Patient Disposition: Admitted As Inpatient Forms Stand Alone Forms: [email or web address] [facility] [place] [employer] Prescriptions Prescriptions: No Action Ibuprofen Tab (ADVIL) 200 MG tablet 400 mg PO Q4 PRN (Reason: Pain) Qty: 0 ondansetron 4 mg tablet,disintegrating 4 mg PO Q8H PRN (Reason: nausea and vomiting) Qty: 10 0RF oxycodone 5 mg tablet 5 mg PO Q6H PRN (Reason: pain, severe) Qty: 12 0RF Referrals Referrals: Dex Mckenna [Primary Care Provider] -
[2024-02-11] MEDS: estradioL 1 MG TAB PO SCH (20:26)
[2024-02-12 06:48] LABS: Hematocrit (blood only) 21.5 % (37.0-47.0); Hemoglobin 6.6 g/dl (12.0-16.0); Mean Corpuscular Hgb Conc 30.7 g/dL (32.0-36.0); Mean Corpuscular Volume 74.9 fL (80.0-100.0); Mean Platelet Volume 9.1 fL (9.4-12.4); Platelet Count 343 K/uL (130-400); RDW Coefficient of Variation 22.3 % (11.5-14.5); RDW Standard Deviation 60.8 fL (36.4-46.3); Red Blood Count 2.87 M/uL (4.20-5.40); White Blood Count 7.61 K/ul (4.8-10.8)
[2024-02-12 06:52] LABS: Anisocytosis Present; Basophils # (auto) 0.08 K/uL (0.00-0.20); Basophils % (auto) 1.1 %; Eosinophils # (auto) 0.35 K/uL (0.00-0.50); Eosinophils % (auto) 4.6 %; Immature Granulocytes # (auto) 0.03 K/uL (0.01-0.20); Immature Granulocytes % (auto) 0.4 %; Lymphocytes # (auto) 1.37 K/uL (1.20-3.40); Monocytes # (auto) 0.67 K/uL (0.11-0.59); Monocytes % (auto) 8.8 %; Neutrophils # (auto) 5.11 K/uL (1.40-6.50); Neutrophils % (auto) 67.1 %; Polychromasia 1+
[2024-02-12] MEDS ORDERED: SODIUM CHLORIDE 0.9% 100 ML IV PRN ×2 (10:57→11:28)
[2024-02-12] MEDS ORDERED: SODIUM CHLORIDE 0.9% 50 ML IV PRN ×2 (10:57→11:28)
[2024-02-12] MEDS ORDERED: diphenhydrAMINE Capsule 25 MG CAP PO ONE (10:58)
[2024-02-12 12:22] VITALS: O2SAT 98
--- NOTE | 2024-02-12 12:29 | Ultrasound Report ---
Exam(s): US PELVIS EXAM: US Pelvis Transabdominal, Complete CLINICAL HISTORY: Reason for exam: vaginal bleeding. TECHNIQUE: Real-time complete transabdominal pelvic ultrasound with image documentation. COMPARISON: No relevant prior studies available. FINDINGS: Uterus/cervix: The uterus measures 10 x 5.9 x 7.2 cm and is anteverted. The endometrial stripe is thickened measuring 4 cm with a heterogenous 4 cm diameter structure within it, possibly pedunculated or subendometrial fibroid. Right ovary: The right ovary measures 2.6 x 1.8 x 1.7 cm with normal Doppler blood flow. Left ovary: The left ovary measures 4.2 x 2.5 x 3.2 cm with a 3.2 cm smooth oval cyst or follicle within it. Doppler blood flow is normal. Free fluid: No free fluid. Bladder: Unremarkable as visualized. Wall is normal thickness for degree of distention. IMPRESSION: The endometrial stripe is thickened measuring 4 cm with a heterogenous 4 cm diameter structure within it, possibly pedunculated or subendometrial fibroid. Electronically signed by: Lalit Worley MD 02/11/24 21:09 PM
[2024-02-12 12:46] VITALS: RESP 16
[2024-02-12 15:20] VITALS: TEMP 98.1
[2024-02-12 15:32] VITALS: BP 104/60; PULSE 81
[2024-02-12 16:11] LABS: Hematocrit (blood only) 25.4 % (37.0-47.0)
--- OUTSIDE RECORDS SUMMARY | 2024-02-12 17:42 | External Medical Summary | Summary of Care ---
Author Name Unknown Organization [facility] Address [address] [address] Phone [phone] Care Team Providers Care Line Fisher Name Role Phone Unavailable Primary Care Provider Unavailabl e Reason for Visit * Reason Comments NEW PATIENT Encounter Details Date Type Department Care Team (Late st Contact Info) Description 01/25/2024 9:00 AM EST Office Visit Gynecology/Obstetric s [facility] [address] [place] [address] Mars Erwin MD [address] [place] [place] [phone] Fibroids*; Anemia, unspecified type; History of heavy vaginal bleeding Allergies Active Allergy Reactions Criticality Noted Date Comments Penicillins 05/28/1999 rash documented as of this encounter (statuses as of 01/25/2024) Medications Medication Sig Dispensed Refills Start Date End Date Status Acetaminophen-Cod eine 300-30 MG Oral TabletIndications :Flank pain Take 1 Tablet by mouth every 4 hours as needed for Pain, Moderate. 10 Tablet 04/19/2023 01/25/2024 Discontinued( Medication List Clean Up) documented as of this encounter (statuses as of 01/25/2024) Active Problems Problem Noted Date Diagnosed Date Von Willebrand disease 04/19/2023 CONTRACEPT PILL SURVEILL 01/21/2004 CONTRACEPT PILL SURVEILL 07/02/2000 Idiopathic scoliosis documented as of this encounter (statuses as of 01/25/2024) Immunizations Name Administration Dates Next Due DTP Vaccine 10/31/1987, 4,09/01/1982,04/22,02/27/1982 HEP B - Hepatitis B (Adole/H igh Risk Ped, 11-15 yrs 07/02/2000,09/17/1999,04/23/1999,07/199909/21/1999 MMR - Measles/Mumps/Rubella Vaccine 03/26/1999,0 04/12/1983 Meningococcal Polysaccharide Vaccine ([place]) 07/02/2000 OPV - Polio Virus Vaccine (Oral) 992,10/31/1987,08/03/1983,04/22 PPD 05/05/2000 TD - Tetanus/Diptheria (ADULT) 12/11/1997 documented as of this encounter Social History Tobacco Use Types Packs/Day Years Used Date Smoking Tobacco: Never Smokeless Tobacco: Never Alcohol Use Standard Drinks/Week Comments No 0 (1 standard drink = 0.6 oz pur e alcohol) Hunger Vital Sign Answer Date Recorded Within the past 12 months, y ou worried that your food would run out before you got the money to buy more. Never true 01/25/20 24 Within the past 12 months, t he food you bought just didn't last and you didn't have money to get more. Never true 01/25/2024 Childcare Answer Date Recorded Do you feel overwhelmed with taking care of a child, family member or friend? No 01/25/2024 Does your family need help f inding childcare? (Household - for ages 0-17 years) Not on file 01/25/2024 Clothing Answer Date Recorded Have you been unable to get clothing when it was really needed? No 01/25/2024 Is your family able to get c lothes or diapers when needed? (Household - for ages 0-17 years) Not on file 01/25/2024 Personal Safety Answer Date Recorded Do you feel unsafe or have concerns for your saf ety? No 01/25/2024 Do you have concerns for you r family's safety? (Household - for ages 0-17 years) Not on file 01/25/2024 Utilities Answer Date Recorded Do you have trouble paying y our heating, water, or electric bill? No 01/25/2024 Is your family able to pay t he heat, water, or electric bill? (Household - for ages 0-17 years) Not on file 01/25/2024 Does your family have access to good internet? (Household - for ages 0-17 years) Not on file 01/25/2024 Employment Status Answer Date Recorded Are you unemployed or without regular income? No 01/25/2024 Does the household have a re gular source of income? (Household - for ages 0-17 years) Not on file 01/25/2024 Social Connections Answer Date Recorded How often do you feel lonely or isolated from th ose around you? Never 01/25/2024 Financial Resource Strain Answer Date R ecorded Do you have any trouble payi ng for your medications, or do you think you might in the future? No 01/25/2024 Does your family have troubl e paying for medicine? (Household - for ages 0-17 years) Not on file 01/25/2024 Transportation Needs Answer Date Record ed Do you have trouble getting a ride to medical visits or work? (Adult - for ages 18 years and over) Not on file 01/25/2024 Does your family have a hard time getting a ride to doctors visits? (Household - for ages 0-17 years) Not on file 01/25/2024 Has lack of transportation k ept you from medical appointments, meetings, work, or from getting things needed for daily living? Check all that apply. No 01/25/2024 Do you (or your family) have trouble finding or paying for a ride (transportation)? (Household - for ages 0-17 years) Not on file 01/25/2024 Housing Stability Answer Date Recorded Do you currently live in a s helter or have no steady place to sleep at night? No 01/25/2024 Do you think you are at risk of becoming homeless? (Adult - for ages 18 years and over) Not on file 01/25/2024 Does your family worry about paying for your home or becoming homeless? (Household - for ages 0-17 years) Not on file 1 03/26/2023 Are you homeless or worried that you might be in the future? No 01/25/2024 Are you (or your family) sole eless or worried that you might be in the future? (Household - for ages 0-17 years) Not on file Food Insecurity Answer Date Recorded Do you need food for this week? No 01/25/2024 Are you able to get enough f ood for your family? (Household - for ages 0-17 years) Not on file 01/25/2024 Does your family need food t his week? (Household - for ages 0-17 years) Not on file 01/25/2024 Do you always have enough fo od for your family? (Household - for ages 0-17 years) Not on file 01/25/2024 Sex and Gender Information Value Date Recorded Sex Assigned at Female 01/25/2024 8:11 AM EST Gender Identity Female 01/25/2024 8:11 AM EST Sexual Orientation Straight 01/25/2024 8: 11 AM EST Job Start Date Occupation Industry Not on file Not on file Not on file documented as of this encounter Last Filed Vital Signs Vital Sign Reading Time Taken Comments Blood Pressure 108/60 01/25/2024 8:58 AM EST Pulse - - Temperature - - Respiratory Rate - - Oxygen Saturation - - Inhaled Oxygen Concentration - - Weight 65.3 kg (144 lb) 01/25/2024 8:58 AM EST Height 162.6 cm (5' 4") 01/25/2024 8:58 AM EST Body Mass Index 24.72 01/25/2024 8:58 AM EST documented in this encounter Progress Notes * Mars Erwin MD - 01/25/2024 9:27 AM EST Subjective Kerline Heard is a 43 year old female. Chief Complaint Patient presents with NEW PATIENT HPI: Patient is a 2 para 2 history of von Willebrand's disease. Has uterine fibroids. Has been tried on hormone therapy unsuccessfully. Have discussed partial hysterectomy with preservation of both ovaries. This is probably her best option for relief of these symptoms. It should be noted that she bleeds practically all the time even in small amounts.. Patient is add to be on iron infusiondue to heavy vaginal bleeding PMH: Patient Active Problem List Diagnosis CONTRACEPT PILL SURVEILL Idiopathic scoliosis CONTRACEPT PILL SURVEILL Von Willebrand disease (HCC) No current outpatient medications on file. No current facility-administered medications for this visit. Review of patient's allergies indicates: Allergen Reactions Penicillins rash Objective BP 108/60 | Ht 1.626 m (5' 4") | Wt 65.3 kg (144 lb) | LMP 01/14/2024 (Approximate) | BMI 24.72 kg/m | BSA 1.72 m Patient appeared to be alert oriented x3 cooperative in no acute distress Pelvic exam revealed a small amount of dark blood in the vaginal vault. Cervix appeared normal. Uterus was anteverted enlarged to approximately 11-12 weeks gestational size. There were no adnexal masses appreciated. Laura Bartholomew ASSESSMENT/PLAN: Discussed options for heavy bleeding including endometrial ablation and conservative therapy. [place] that due to the von Willebrand's history and past failure of these conservative methods that a total abdominal hysterectomy with preservation of the ovaries would be the best option. Patient is going to meet with her fish hatchery inspector and then potentially schedule surgery in the future. There are no diagnoses linked to this encounter. Mars Erwin MD documented in this encounter Nursing Notes * Tresa Saul LPN - 01/25/2024 9:00 AM EST Pt here today heavy bleeding Iron infusions Was on Norethindrone- periods became even worse Fibroid on [facility] 12/27/23 documented in this encounter Plan of Treatment Health Maintenance Due Date Last Done Comments Lipid Panel 1981 Depression Screening 1993 HIV Screening 1996 Hepatitis C Screening 12/22/1999 Pap Smear 10/18/2006 10/19/2003, 09/21, 10/19/2002, Additional history exists Cervical Cancer Screening 12/22/2011 HPV/Co-Test 12/22/2011 Mammogram 2021 COVID-19 Vaccine ( season) 2023 05/17/2021, 07/11/2020, 06/06/2020 Influenza Vaccine (FLU shot) (#1) 2023 DTap/Tdap Vaccines (7 - Td or Tdap) 08/13/2024 08/13/2014, 12/11/1997, 10/31/1987, Additional history exists Hepatitis B Vaccine Completed 07/02/2000, 09/17/1999, 04/23/1999, Additional history exists MENINGOCOCCAL (MENACTRA/MENVEO) Aged Out 07/02/2000 No longer eligible based on patient's age to complete this topic HPV (Gardasil) Vaccine Aged Out No lo nger eligible based on patient's age to complete this topic Pneumococcal Vaccine: Pediatrics (0 to 5 Years) and At-Risk Patients (6 to 64 Years) Aged Out No longer eligible based on patient's age to complete this topic documented as of this encounter Medical Devices Not on filedocumented as of this encounter Visit Diagnoses Diagnosis Fibroids- Primary Leiomyoma of uterus, unspecified Anemia, unspecified type History of heavy vaginal bleeding documented in this encounter
--- OUTSIDE RECORDS SUMMARY | 2024-02-12 17:42 | External Medical Summary | Summary of Care ---
Author Name Unknown Organization [facility] Address [address] [facility] [place] [address] Phone [phone] Care Team Providers Care Fur Dressing Supervisor Name Role Phone Unavailable Primary Care Provider Unavailabl e Reason for Visit * Reason Comments NEW PATIENT Encounter Details Date Type Department Care Team (Late st Contact Info) Description 01/25/2024 9:00 AM EST Office Visit Gynecology/Obstetric s [facility] [address] [place] [address] Mars Erwin MD [address] [place] [phone] Fibroids*; Anemia, unspecified type; History of heavy [...] bleeding including endometrial ablation and conservative therapy. [place] that due to the von Willebrand's history and past failure of these conservative methods that a total abdominal hysterectomy with preservation of the ovaries would be the best option. Patient is going to meet with her attorney at law and then potentially schedule surgery in the future. There are no diagnoses linked to this encounter. Mars Erwin MD documented in this encounter Nursing Notes * Tresa Saul LPN - 01/25/2024 9:00 AM EST Pt here today heavy bleeding Iron infusions Was on Norethindrone- periods became even worse Fibroid on [facility] 12/27/23 documented in this encounter Plan of [...]
--- OUTSIDE RECORDS SUMMARY | 2024-02-12 17:43 | External Medical Summary | Summary of Care ---
Author Name Unknown Organization [facility] Address [address] [facility] [place] [address] Phone [phone] Care Team Providers Care Senior Account Manager Name Role Phone Unavailable Primary Care Provider Unavailabl e Reason for Visit * Reason Comments NEW PATIENT Encounter Details Date Type Department Care Team (Late st Contact Info) Description 01/25/2024 9:00 AM EST Office Visit Gynecology/Obstetric s [facility] [address] [place] [phone] Mars Erwin MD [address] [place] [phone] Fibroids*; Anemia, unspecified type; History of heavy [...] of this encounter (statuses as of 01/25/2024) Social History Tobacco Use Types Packs/Day Years [...] size. There were no adnexal masses appreciated. ASSESSMENT/PLAN: Discussed options for heavy bleeding including endometrial ablation and conservative therapy. [place] that due to the von Willebrand's history and past failure of these conservative methods that a total abdominal hysterectomy with preservation of the ovaries would be the best option. Patient is going to meet with her finish grinder and then potentially schedule surgery in the future. There are no diagnoses linked to this encounter. Mars Erwin MD documented in this encounter Nursing Notes * Tresa Saul LPN - 01/25/2024 9:00 AM EST Pt here today heavy bleeding Iron infusions Was on Norethindrone- periods became even worse Fibroid on [facility] 12/27/23 documented in this encounter Plan of Treatment Health Maintenance Due Date Last Done Comments Lipid Panel 1981 Depression Screening 1993 HIV Screening 1996 Hepatitis C Screening 12/22/1999 Pap Smear 10/18/2006 10/19/2003, 09/21, 10/19/2002, Additional history exists Cervical Cancer Screening 12/22/2011 HPV/Co-Test 12/22/2011 Mammogram 2021 COVID-19 Vaccine ( season) 2023 07/11/2020, 06/06/2020 Influenza Vaccine (FLU shot) (#1) [...]
--- OUTSIDE RECORDS SUMMARY | 2024-02-12 17:43 | External Medical Summary | Summary of Care ---
Author Name Unknown Organization [facility] Address [address] [facility] [address] Phone [phone] Care Team Providers Care Glass Designer Name Role Phone Unavailable Primary Care Provider Unavailabl e Reason for Visit * Reason Comments NEW PATIENT Encounter Details Date Type Department Care Team (Late st Contact Info) Description 01/25/2024 9:00 AM EST Office Visit Gynecology/Obstetric s [facility] [address] [place] [address] Mars Erwin MD [address] [place] [phone] Fibroids*; Anemia, unspecified type; History of heavy [...] bleeding including endometrial ablation and conservative therapy. [place] that due to the von Willebrand's history and past failure of these conservative methods that a total abdominal hysterectomy with preservation of the ovaries would be the best option. Patient is going to meet with her turning machine operator helper and then potentially schedule surgery in the future. There are no diagnoses linked to this encounter. Mars Erwin MD documented in this encounter Nursing Notes * Tresa Saul LPN - 01/25/2024 9:00 AM EST Pt here today heavy bleeding Iron infusions Was on Norethindrone- periods became even worse Fibroid on [facility] 12/27/23 documented in this encounter Plan of [...]
--- NOTE | 2024-02-14 08:53 | Gynecologic Progress Note ---
Date of Service February 14, 2024 Assessment & Plan Admission and Anticipated Discharge Date Admission Date: February 11, 2024 Subjective Late entry from February 11 morning, Patient was seen with Dr. Ferris in her room. She was feeling well, no complaints, bleeding has stopped other than minimal spotting and brown discharge, Patient denied pain in abdomen or pelvis, not sure whether she will be short of breath or dizzy if she would climb stairs. She has been in bed in the room most of the time since admission, Did not feel dizzy or lightheaded when she used the bathroom, Vital signs stable afebrile repeat hemoglobin this morning was less than 7 recommended to receive another unit of packed red blood cell and patient agreed. We discussed the plan for hormonal therapy estradiol 2 mg for 12 days and then we will add Prometrium 200 mg for another 12 days together total of making 24 days. This was explained to the patient and she understood and placed in the discharge instructions. Patient was signed out to Dr. Ferris to check her on later after packed red blood cell transfusion.
--- NOTE | 2024-02-14 15:46 | Electrocardiogram Report ---
Test Reason : Blood Pressure : */* mmHG Vent. Rate : 110 BPM Atrial Rate : 110 BPM P-R Int : 152 ms QRS Dur : 64 ms QT Int : 336 ms P-R-T Axes : 64 24 28 degrees QTcB Int : 454 ms Sinus tachycardia Abnormal ECG When compared with ECG of 04-Aug-2016 11:32, No significant change was found Confirmed by Chavo Rey ([id number]) on 02/14/2024 3:46:31 PM Referred By: Melvin Catalan Confirmed By: Chavo Rey
--- NOTE | 2024-03-01 09:05 | Discharge Summary ---
Date of Service March 01, 2024 Admission HPI Per Admitting Provider As per HPI Discharge Data Consultations 02/11/24 18:28 ED Decision to Admit Stat 02/11/24 18:46 Consult Hematology Routine Procedures Performed None Hospital Course (1) Vaginal bleeding: Discharge Instructions Pt is discharges home in stable condition. Discharge instructions including medications,diet, activity and follow up appointments are reviewed with pt.
== END 2024-02-12 15:45 | disposition home health service (06) | DRG 813 ==
LOC: ED 17:31 → 4E1 19:11 → INTOOBSV 19:11 → 4E1 22:46

== ENCOUNTER 2024-05-23 05:49 | Observation (INO) ==
--- NOTE | 2024-05-16 08:35 | Anesthesiology Consultation ---
Date of Service May 16, 2024 Assessment & Plan (1) Encounter for pre-operative examination: Plan - check urine test and EKG STAT am DOS. - patient contacted PAT 05/15/24 reporting that CCP has filled prescription for desmopressin and she will bring this to hospital DOS. Will request formal documentation on bowen-operative instructions from CCP regarding von Willebrand. - Per rodbuster on 05/09/24: No known infectious disease contacts, current infectious disease symptoms in past 10 days or COVID positive test result in the past 30 days. Chart Review Chart Review: Pending: Refer to Additional Notes / Consult section and Patient NOT seen in Pre Admission Testing History Surgery Operation Date: 05/23/24 07:15 Proposed Procedures p Total Abdominal Hysterectomy - Mars Erwin MD Height/Weight Height: 5 ft 4 in Weight: 63.503 kg Allergies Allergy/AdvReac Type Severity Reaction Status Date / Time Penicillins Allergy Mild Urticaria Verified 05/09/24 12:47 Medications Home Medications Medication Instructions Recorded Confirmed Last Taken No Known Home Medications 05/09/24 05/09/24 Unknown Past Medical History Medical History (Updated 05/16/24 @ 08:34 by Lora Sosa PA-C) Abnormal uterine bleeding (AUB) (01/2024) required blood tx 02/12 Anemia gets iron infusions every other week at [facility] Deficiency of von Willebrand factor Fibroid, uterine History of blood transfusion (01/2024) due to heavy vaginal bleeding, [facility] No pertinent family history Past Surgical History Surgical History Hx of arthroscopic knee surgery left knee Hx of partial thyroidectomy non cancerous lesion Social History Smoking Status: Never smoker Do You Dip or Chew Tobacco: No Hx Alcohol Use: Yes alcohol intake frequency: a few times a week Hx Substance Use: No substance use type: does not use Lab Results Anesthesia Preop Results Results Anesthesia Widget: WBC 8.07 K/ul (4.8-10.8) 05/15/24 Hgb 11.6 g/dl (12.0-16.0) L 05/15/24 Hct 36.1 % (37.0-47.0) L 05/15/24 Plt 299 K/uL (130-400) 05/15/24 Testing Electrocardiogram Date: 02/11/24 Sinus tachycardia, rate 110 bpm No significant change vs 08/04/16 EKG
[~2024-05-23 05:49] MED LIST changes: +ALLERGY Noted to ORDERED Medication SCH; -PRENTAB26 PO
[2024-05-23] MEDS: LACTATED RINGER'S 1,000 ML IV SCH (06:16)
[2024-05-23 06:24] LABS: Basophils # (auto) 0.08 K/uL (0.00-0.20); Eosinophils # (auto) 0.52 K/uL (0.00-0.50); Eosinophils % (auto) 6.4 %; Hematocrit (blood only) 37.7 % (37.0-47.0); Hemoglobin 12.1 g/dl (12.0-16.0); Immature Granulocytes # (auto) 0.02 K/uL (0.01-0.20); Immature Granulocytes % (auto) 0.2 %; Lymphocytes # (auto) 2.17 K/uL (1.20-3.40); Lymphocytes % (auto) 26.7 %; Mean Corpuscular Hemoglobin 29.1 pg (25.0-34.0); Mean Corpuscular Hgb Conc 32.1 g/dL (32.0-36.0); Mean Corpuscular Volume 90.6 fL (80.0-100.0); Mean Platelet Volume 9.4 fL (9.4-12.4); Monocytes # (auto) 0.66 K/uL (0.11-0.59); Monocytes % (auto) 8.1 %; Neutrophils # (auto) 4.68 K/uL (1.40-6.50); Neutrophils % (auto) 57.6 %; Platelet Count 306 K/uL (130-400); RDW Coefficient of Variation 16.6 % (11.5-14.5); RDW Standard Deviation 55.4 fL (36.4-46.3); Red Blood Count 4.16 M/uL (4.20-5.40); White Blood Count 8.13 K/ul (4.8-10.8)
--- NOTE | 2024-05-23 06:43 | History & Physical Bridge Note ---
Date of Service May 23, 2024 History & Physical Bridge Note I have examined the patient, reviewed the History & Physical and in the interval since the performance of the History & Physical I have noted the following changes of clinical significance: no changes noted
[2024-05-23] MEDS ORDERED: LIDOCAINE 2% 20 MG/ML 5 ML SYR IV ONE (07:11)
[2024-05-23] MEDS ORDERED: ROCURONIUM BROMIDE 10 MG/ML 5 ML VIAL IV ONE (07:11)
[2024-05-23] MEDS ORDERED: PROPOFOL IV EMULSION 10 MG/ML 20 ML VIAL IV ONE (07:11)
[2024-05-23] MEDS ORDERED: MIDAZOLAM HCL 1 MG/ML 2ML VIAL ONE (07:13)
[2024-05-23] MEDS ORDERED: fentaNYL citrate PF 100 MCG/2 ML VIAL ONE (07:20)
[2024-05-23] MEDS: cefOXitin 2,000 MG in DEXTROSE 5 % MINI-B 50 ML IV SCH (07:25)
[2024-05-23] MEDS ORDERED: KETAMINE HCL 10MG/ML SYR ONE (07:29)
[2024-05-23] MEDS ORDERED: HYDROmorphone INJ 1 MG/ML SYRINGE ONE (07:29)
[2024-05-23] MEDS ORDERED: ATROPINE SULFATE 0.1 MG/ML 10ML SYR IV PRN (07:49)
[2024-05-23] MEDS ORDERED: PROMETHAZINE HCL 6.25 MG in SODIUM CHLORIDE 0.9% 50 ML IV PRN (07:49)
[2024-05-23] MEDS ORDERED: ONDANSETRON INJ 2 MG/ML 2 ML VIAL IV PRN ×2 (07:49→11:39)
[2024-05-23] MEDS ORDERED: FLUMAZENIL 0.1 MG/1 ML 10 ML VIAL IV PRN (07:49)
[2024-05-23] MEDS ORDERED: NALOXONE HCL 0.4 MG/1 ML VIAL/CARP IV PRN (07:49)
[2024-05-23] MEDS ORDERED: ePHEDrine sulfate 50 MG/ML AMP IV PRN (07:49)
[2024-05-23] MEDS ORDERED: ONDANSETRON INJ 2 MG/ML 2 ML VIAL ONE (08:13)
[2024-05-23] MEDS ORDERED: DEXAMETHASONE SOD INJ 4 MG/ML VIAL ONE (08:13)
[2024-05-23] MEDS ORDERED: SUGAMMADEX SODIUM 200 MG/2 ML VIAL IV ONE (09:21)
--- NOTE | 2024-05-23 09:37 | Operative Report ---
Post Operative Report Pre & Post Diagnosis Operation Date: 05/23/24 07:15 Pre-Op Diagnosis: Heavy Vaginal Bleeding, Fibroids, Adenomyosis, Anemia, Von Willebrand's Disease Post-Op Diagnosis: Heavy Vaginal Bleeding, Fibroids, Adenomyosis, Anemia, Von Willebrand's Disease I identified the patient and participated in the time-out.: Yes Procedure Operation Date: 05/23/24 07:15 Actual Procedures p Total Abdominal Hysterectomy(Not Applicable) - Mars Erwin MD Surgeon Mars Erwin MD Alliance Consultant [id number] Estimated Blood Loss 100 Findings Consistent with Post-Op Diagnosis Enlarged uterus. Normal tubes and ovaries. Specimens Uterus and cervix. Drains [place] drain with safety pin and vaginal cuff. Anesthesia Type General Complications None Indications Fibroids severe anemia with hemoglobin as low as 5 Description of Procedure Patient was brought to the OR correctly identified by armband and conversation. Vaginal prep was performed. Donaldson catheter was inserted into the bladder connected to gravity drainage. Lower abdomen was prepped with an alcohol-based sterilizing solution. Then draped in usual sterile fashion. A Pfannenstiel incision was made carried down to the anterior fascia by sharp dissection. Hemostasis was secured by electrocauterization. Fascia was incised laterally and from the underlying muscle by blunt and sharp dissection. Recti muscles were in the midline. Peritoneum was carefully raised and entered. An O'Bert-O'Banks self retraining retractor was inserted into the incision. 3 laparotomy packs were used to retract the intestines and provide adequate exposure of pelvic cavity. At this time an enlarged uterus was noted consistent with about a 10 to 11 weeks gestational size. Both tubes and ovaries were normal. Round ligaments were clamped on each side then tagged and ligated distally and cut. The bladder was advanced out of the operative field. Posterior leaf of the broad ligament was punched through bluntly. A Linda was used to grasp the attachments of the adnexa proximally and distally on each side. The adnexa were then cut free. Stumps were sutured with a transfixion suture of chromic catgut. And a free tie of silk to ensure hemostasis. Following this uterine vessels were skeletonized on each side. Doubly clamped with a curved Candido. Cut. Then doubly ligated with chromic gut suture. Stumps were then cauterized. The round ligaments were cut free by sliding off the cervix with a curved Candido. Then excising the round ligaments from the c ervix with a stump. And ligating with a Chromic Gut suture. This was done in 2 steps because of the length of the cervix. The cervix was then shelled out with electrocautery. Thus removing the surgical specimen consisting of uterus and cervix. The vaginal cuff was then sutured as follows the angles were sutured to the stumps of the cardinal ligaments on each side with a Chromic Gut suture. T hen the anterior and posterior vaginal cuff was sutured together with a [id number] suture anchored in the adnexa on each side and then tied. The cardinal ligaments were approximated with an interrupted [id number] suture chromic catgut. The vaginal cuff was whipstitched open with a continuous interlocking suture of chromic. [place] drain with a safety pin was placed into the vaginal canal. Then the round ligaments were brought down and tied to the stumps of the cardinal ligaments for support. Then the peritoneum was approximated varying the stumps of the adnexa and the stumps of the cardinal ligaments. Following this the abdomen was washed clean hemostasis was good. Packs were removed. Retractor was removed. Careful anatomical approximation of the anterior abdominal wall was performed. The peritoneum was closed with continuous Chromic Gut suture. Recti muscles approximated with interrupted [id number] suture chromic catgut. Fascia was closed with continuous int erlocking suture of Vicryl on each side tied to midline. Subcu was approximated with a continuous plain. The skin edges were approximated with staple clips. Patient Tollerated procedure well. I attest to the content of the Intraoperative Record and any orders documented therein. Any exceptions are noted below.
[2024-05-23] MEDS: fentaNYL citrate PF 100 MCG/2 ML VIAL IV PRN (09:50)
[2024-05-23] MEDS: HYDROmorphone INJ 1 MG/ML SYRINGE IV PRN (10:10)
[2024-05-23] MEDS: HYDROmorphone INJ 1 MG/ML SYRINGE ONE (10:40)
--- NOTE | 2024-05-23 11:15 | Anesthesiology Progress Note ---
Date of Service May 23, 2024 Anesthesia Post Procedure Vital Signs Vital Signs: Temp Pulse Pulse Resp BP Pulse Ox O2 Del Method 05/23/24 11:05 94 H 12 143/86 H 97 Nasal Cannula 05/23/24 10:55 36.7 C 90 12 143/87 H 96 Nasal Cannula 05/23/24 10:45 92 H 14 142/84 H 95 Nasal Cannula 05/23/24 10:35 94 H 12 140/83 93 Oxymask 05/23/24 10:25 89 12 140/86 97 Oxymask 05/23/24 10:15 88 12 142/82 H 96 Oxymask 05/23/24 10:05 93 H 12 136/84 96 Oxymask 05/23/24 09:55 90 18 142/86 H 96 Oxymask 05/23/24 09:45 94 H 16 155/88 H 97 Oxymask 05/23/24 09:37 37 C 99 H 20 153/87 H 97 Oxymask 05/23/24 06:00 36.9 C 88 18 121/80 100 Room Air O2 Flow Rate 05/23/24 11:05 2 05/23/24 10:55 2 05/23/24 10:45 2 05/23/24 10:35 2 05/23/24 10:25 2 05/23/24 10:15 2 05/23/24 10:05 3 05/23/24 09:55 3 05/23/24 09:45 3 05/23/24 09:37 6 05/23/24 06:00 Pain Intensity Abdomen: Pain Intensity: 5 Transfer of Care Handoff Completed per policy Notes Mental Status: alert / awake / arousable Patient Amnestic to Procedure: Yes Nausea / Vomiting: adequately controlled Pain: adequately controlled Airway Patency, RR, SpO2: stable & adequate BP & HR: stable & adequate Hydration State: stable & adequate Anesthetic Complications: no major complications apparent
[2024-05-23] MEDS ORDERED: bisacodyL 10 MG SUPP PR PRN (11:31)
[2024-05-23] MEDS ORDERED: MAGNESIUM HYDROXIDE SUSP 30 ML UDC PO PRN ×2 (11:31→11:39)
[2024-05-23] MEDS ORDERED: ZOLPIDEM TARTRATE 5 MG TAB PO PRN (11:39)
[2024-05-23] MEDS: ACETAMINOPHEN 325 MG TAB PO PRN (12:05)
[2024-05-23] MEDS: MEPERIDINE HCL 25 MG/ML CARP/VIAL IV PRN (12:42)
[2024-05-23] MEDS: ACETAMINOPHEN 325 MG TAB ONE (14:37)
[2024-05-23] MEDS: ONDANSETRON INJ 2 MG/ML 2 ML VIAL IV PRN (15:55)
[2024-05-23] MEDS: HYDROmorphone INJ 0.5 MG/0.5 ML SYR IV PRN (15:55)
[2024-05-23] MEDS ORDERED: DESMOPRESSIN ACETATE 4 MCG/ML 10 ML VIAL SQ SCH (21:00)
[2024-05-23] MEDS: SODIUM CHLORIDE 0.9% IV SCH (21:05)
[2024-05-23] MEDS: DESMOPRESSIN ACETATE IV SCH (21:05)
--- OUTSIDE RECORDS SUMMARY | 2024-05-23 23:25 | External Medical Summary | Summary of Care ---
Author Name Unknown Organization [facility] Address [address] [place] [address] Phone [phone] Care Team Providers Care Name Plate Stamper Name Role Phone Dex Mckenna DO Primary Care Provider Encounter Details Date Type Department Care Team (Late st Contact Info) Description 05/23/2024 Orders Only Gynecology/Obstetrics [facility] [address] [place] [id number] Mars Erwin MD [address] [place] [place] [phone] Allergies Active Allergy Reactions Criticality Noted Date Comments Penicillins 05/28/1999 rash documented as of this encounter (statuses as of 05/23/2024) Medications No known medicationsdocumented as of this encounter (statuses as of 05/23/2024) Active Problems Problem Noted Date Diagnosed Date Von Willebrand disease 04/19/2023 CONTRACEPT PILL SURVEILL 01/21/2004 CONTRACEPT PILL SURVEILL 07/02/2000 Idiopathic scoliosis documented as of this encounter (statuses as of 05/23/2024) Social History Tobacco Use Types Packs/Day Years [...] ages 0-17 years) Not on file 01/25/2024 Food Insecurity Answer Date Recorded Within the past 12 months, y ou worried that your food would run out before you got the money to buy more. Never true 01/25/20 24 Within the past 12 months, t he food you bought just didn't last and you didn't have money to get more. Never true 01/25/2024 Do you need food for this week? 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 on file Not on file Not on file documented as of this encounter Plan of Treatment Upcoming Encounters Date Type Department Care Team (Late st Contact Info) Description 06/08/2024 10:30 AM EDT Office Visit Gynecology/Obstetrics [facility] [address] [place] [id number] Mars Erwin MD [address] [place] [phone] Health Maintenance Due Date Last Done Comments [...] on patient's age to complete this topic Meningitis B Vaccine (Bexsero/Trumemba) Aged Out No longer eligible based on patient's age to complete this topic Pneumococcal Vaccine: Pediatrics (0 to 5 Years) and At-Risk Patients (6 to 18 Years and 19+ Years) Aged Out No longer eligib le based on patient's age to complete this topic documented as of this encounter Medical Devices Not on filedocumented as of this encounter Procedures Procedure Name Priority Date/Time Associated Diagnosis Comments CHEMISTRY-OUTSIDE Routine 05/23/2024 documented in this encounter Results * CHEMISTRY-OUTSIDE (05/23/2024) Not all results display below - see scan for full detail OUTSIDE LAB (SEE SCANNED REPORT) Comment:SEE SCAN: CBCD, TYPE & SCREEN CREATININE OUTSIDE L AB (SEE SCANNED REPORT) EGFR OUTSIDE LA B (SEE SCANNED REPORT) POTASSIUM OUTSIDE LA B (SEE SCANNED REPORT) GLUCOSE OUTSIDE LA B (SEE SCANNED REPORT) HOURS FASTING OUTSID E LAB (SEE SCANNED REPORT) TRIGLYCERIDES-OUT SIDE LAB OUTSIDE LAB (SEE SCANNED REPORT) CHOLESTEROL-OUTSI DE LAB OUTSIDE LAB (SEE SCANNED REPORT) HDL-OUTSIDE LAB OUTS [facility] (SEE SCANNED REPORT) CHOL/HDL RATIO-OUTSIDE LAB OUTSIDE LA B (SEE SCANNED REPORT) LDL (CALCULATED)-OUTS [facility] OUTSIDE LAB (SEE SCANNED REPORT) LDL (DIRECT MEASURE)-OUTSIDE LAB OUTSIDE LAB (SEE SCANNED REPORT) HEMOGLOBIN, [id number] LAB OUTSIDE LAB (SEE SCANNED REPORT) PHOSPHORUS-OUTSID E LAB OUTSIDE LAB (SEE SCANNED REPORT) PTH-OUTSIDE LAB OUTS [facility] (SEE SCANNED REPORT) MICROALBUMIN RATIO-OUTSIDE LAB OUTSIDE LA B (SEE SCANNED REPORT) PROTEIN, UA-OUTSIDE LAB OUTSIDE LAB (SEE SCANNED REPORT) HGB 12.1 12.0 - 16.0 G/DL OUTSIDE LAB (SEE SCANNED REPORT) 05/23/2024 us Mars Erwin MD LABORATORY Final Resul t OUTSIDE LAB (SEE SCANNED REPORT) documented in this encounter Care Teams Name Plate Stamper Relationship Specialty Start Date End Date Dex Mckenna DO [address] [place] [address] PCP - General Family Medicine 04/06/24 documented as of this encounter
[2024-05-24 06:40] LABS: Basophils # (auto) 0.03 K/uL (0.00-0.20); Basophils % (auto) 0.2 %; Eosinophils # (auto) 0.03 K/uL (0.00-0.50); Eosinophils % (auto) 0.2 %; Hematocrit (blood only) 32.9 % (37.0-47.0); Hemoglobin 10.5 g/dl (12.0-16.0); Immature Granulocytes # (auto) 0.06 K/uL (0.01-0.20); Immature Granulocytes % (auto) 0.5 %; Lymphocytes # (auto) 1.74 K/uL (1.20-3.40); Lymphocytes % (auto) 13.1 %; Mean Corpuscular Hemoglobin 29.3 pg (25.0-34.0); Mean Corpuscular Hgb Conc 31.9 g/dL (32.0-36.0); Mean Corpuscular Volume 91.9 fL (80.0-100.0); Mean Platelet Volume 9.2 fL (9.4-12.4); Monocytes # (auto) 1.34 K/uL (0.11-0.59); Monocytes % (auto) 10.1 %; Neutrophils # (auto) 10.11 K/uL (1.40-6.50); Neutrophils % (auto) 75.9 %; Platelet Count 324 K/uL (130-400); RDW Coefficient of Variation 16.9 % (11.5-14.5); RDW Standard Deviation 56.9 fL (36.4-46.3); Red Blood Count 3.58 M/uL (4.20-5.40); White Blood Count 13.31 K/ul (4.8-10.8)
[2024-05-24 06:59] LABS: BUN Creatinine Ratio 15.9 (10-20); Creatinine Clr Calc Pharmacy 91.7 ml/min; Potassium 4.2 mmol/L (3.5-5.1)
[2024-05-24] MEDS: oxyCODONE/ACETAMINOPHEN 5mg/325mg TAB PO PRN (10:08)
--- NOTE | 2024-05-24 10:26 | Obstetrical Progress Note ---
Date of Service May 24, 2024 Assessment & Plan Admission and Anticipated Discharge Date Admission Date: May 23, 2024 Subjective afebrile abdomen soft and non tender bandage removed incision is clean and dry bowel sounds present no calf tenderness ambulating well vaginal bleeding scant hgb 10.5 Results & Data Vital Signs (Past 12 Hours) Vital Signs Temp Pulse Pulse Resp BP Pulse Ox O2 Del Method 05/24/24 07:58 36.8 C 91 H 16 124/78 94 Room Air 05/24/24 04:30 36.7 C 87 16 128/76 98 Room Air 05/24/24 01:00 36.8 C 88 18 132/80 Room Air
--- NOTE | 2024-05-24 15:15 | Electrocardiogram Report ---
Test Reason : Blood Pressure : */* mmHG Vent. Rate : 78 BPM Atrial Rate : 78 BPM P-R Int : 158 ms QRS Dur : 64 ms QT Int : 386 ms P-R-T Axes : 58 42 18 degrees QTcB Int : 440 ms Normal sinus rhythm Low voltage QRS Borderline ECG When compared with ECG of 11-Feb-2024 18:23, No significant change was found Confirmed by Walt Ho ([id number]) on 05/24/2024 3:15:01 PM Referred By: Mars Erwin Confirmed By: Walt Ho
[2024-05-25 06:10] LABS: Basophils # (auto) 0.05 K/uL (0.00-0.20); Basophils % (auto) 0.4 %; Eosinophils # (auto) 0.14 K/uL (0.00-0.50); Eosinophils % (auto) 1.3 %; Hematocrit (blood only) 28.2 % (37.0-47.0); Hemoglobin 9.6 g/dl (12.0-16.0); Immature Granulocytes # (auto) 0.04 K/uL (0.01-0.20); Immature Granulocytes % (auto) 0.4 %; Lymphocytes # (auto) 1.41 K/uL (1.20-3.40); Lymphocytes % (auto) 12.6 %; Mean Corpuscular Hemoglobin 30.1 pg (25.0-34.0); Mean Corpuscular Volume 88.4 fL (80.0-100.0); Monocytes # (auto) 1.06 K/uL (0.11-0.59); Monocytes % (auto) 9.5 %; Neutrophils # (auto) 8.46 K/uL (1.40-6.50); Neutrophils % (auto) 75.8 %; Platelet Count 247 K/uL (130-400); RDW Coefficient of Variation 16.1 % (11.5-14.5); Red Blood Count 3.19 M/uL (4.20-5.40); White Blood Count 11.16 K/ul (4.8-10.8)
--- NOTE | 2024-05-25 08:29 | Obstetrical Progress Note ---
Date of Service May 25, 2024 Assessment & Plan Admission and Anticipated Discharge Date Admission Date: May 23, 2024 Subjective afebrile abdomen soft and non tender incision is clean and dry bowel sounds present patient is still not passing gas no calf tenderness ambulating well elisa drain with safety pin removed from vagina hgb down to 9.6 Results & Data Vital Signs (Past 12 Hours) Vital Signs Temp Pulse Pulse Resp BP Pulse Ox O2 Del Method 05/25/24 07:30 36.9 C 86 86 16 126/77 97 Room Air 05/25/24 04:30 36.9 C 84 16 128/78 94 Room Air 05/24/24 23:19 37.1 C 94 H 18 132/77 91 Room Air
[2024-05-25] MEDS ORDERED: Nursing to Pharmacy Communication SCH (09:00)
[2024-05-26 00:23] VITALS: RESP 16
[2024-05-26] MEDS: SIMETHICONE 80 MG CHEW PO PRN (00:26)
--- NOTE | 2024-05-26 07:55 | Obstetrical Progress Note ---
Date of Service May 26, 2024 Assessment & Plan Admission and Anticipated Discharge Date Admission Date: May 23, 2024 Subjective abdomen soft and non tender passing gas incision is clean and dry ambulating well no calf tenderness vaginal bleeding scant hgb 11.2 Results & Data Vital Signs (Past 12 Hours) Vital Signs Temp Pulse Resp BP Pulse Ox O2 Del Method 05/25/24 23:40 36.8 C 86 16 111/87 98 Room Air
--- NOTE | 2024-05-26 08:18 | Discharge Summary ---
Date of Service May 26, 2024 Admission HPI Per Admitting Provider Patient is a 43-year-old with a history of heavy vaginal bleeding. Having been seen in the ER with a hemoglobin of 5. Has fibroids on ultrasound. And von Willebrand's disease. Patient was cleared by her lime filter operator to undergo her surgery. The dose of desmopressin and the duration was delineated. The day of admission she received prophylactic antibiotics. Her first dose of desmopressin subcu. She underwent total abdominal hysterectomy with preservation of both ovaries. Estimated blood loss at this time was 100 mL. Postoperatively we continued her on her desmopressin. Her first postoperative hemoglobin was 10.5. Next day it fell to 9.6. At this time we felt she was not ready for discharge until her hemoglobin either stabilized or came up. Following day her hemoglobin was 11.2. At this time she was doing well. She had been afebrile throughout her whole postoperative course. She had a [place] drain in the vaginal cuff which was removed on the second postoperative day. She was given prescriptions for Percocet for pain control. Instructed to stay away from NSAIDs due to her bleeding disorder. She was going to return to the office for removal of lupe in 10 days. Discharge Data Procedures Performed Operation Date: 05/23/24 07:15 Actual Procedures p Total Abdominal Hysterectomy(Not Applicable) - Mars Erwin MD
[2024-05-26 09:20] VITALS: TEMP 98.4; O2SAT 99
[2024-05-26 12:17] VITALS: BP 134/78; PULSE 80
== END 2024-05-26 11:30 | disposition home or self-care (01) ==
LOC: ASU 05:49 → INTOOBSV 11:40 → 4E1 11:40